=== PATIENT | female | born 1975 | race Caucasian/White ===

== ENCOUNTER 2023-09-06 19:04 | Emergency (ER) | payer SELFPAY ==
[~2023-09-06] VITALS: Ht 154.9 cm; Wt 63.5 kg
[2023-09-06 19:15] VITALS: BP 138/86; PULSE 107; RESP 16; TEMP 97.4; O2SAT 99
== END 2023-09-06 19:33 ==
LOC: MED 19:04
DX: Z02.89 Encounter for other administrative examinations (principal); V49.88XA Car occupant (driver) (passenger) injured in other specified transport accidents, initial encounter; Y93.89 Activity, other specified; Y92.89 Other specified places as the place of occurrence of the external cause; Y99.8 Other external cause status
CPT/HCPCS: 99283